=== PATIENT | male | born 1960 | race American Indian/Alaskan Native ===

== ENCOUNTER 2025-03-06 15:33 | Outpatient (CLI) | payer BC | END 2025-03-06 15:34 | disposition home or self-care (01) | LOC: SCSRAD 15:33 | PROVIDERS: ATTEND Internal Medicine | DX: M54.2 Cervicalgia (principal); M25.512 Pain in left shoulder; M79.642 Pain in left hand; M47.812 Spondylosis without myelopathy or radiculopathy, cervical region; M85.812 Other specified disorders of bone density and structure, left shoulder; M19.042 Primary osteoarthritis, left hand | CPT/HCPCS: 72040 ==